=== PATIENT | female | born 1975 | race Hispanic/Latino ===

== ENCOUNTER 2017-08-13 17:24 | Emergency (ER) | payer MEDICAID | END 2017-08-13 18:20 | disposition home or self-care (01) | LOC: EDH 17:24 | DX: O26.893 Other specified pregnancy related conditions, third trimester (principal); R05 Cough; K21.9 Gastro-esophageal reflux disease without esophagitis; Z88.8 Allergy status to other drugs, medicaments and biological substances; Z3A.00 Weeks of gestation of pregnancy not specified ==

== ENCOUNTER 2017-10-07 16:44 | Inpatient (IN) | payer MEDICAID ==
[~2017-10-07] VITALS: Ht 160 cm; Wt 73.9 kg
[2017-10-07 18:00] LABS: BILIRUBIN,URINE Negative (NEGATIVE); COLOR,URINE Dark Yellow (YELLOW); GLUCOSE, URINE (UA) Negative (NEGATIVE); KETONES,URINE Negative (NEGATIVE); LEUKOCYTE ESTERASE ,URINE Trace (NEGATIVE); NITRATE,URINE Negative (NEGATIVE); OCCULT BLOOD,URINE Moderate (NEGATIVE); PROTEIN,URINE POS 1+ (NEGATIVE)
[2017-10-07 18:01] LABS: APPEARANCE,URINE CLEAR (CLEAR)
[2017-10-07 18:13] LABS: BACTERIA,URINE Rare /HPF (None Seen); MUCUS,URINE Few LPF (None Seen); WBC,URINE 0-1 /HPF (0-1)
[2017-10-07 20:38] LABS: HEMATOCRIT 36.7 % (36-48); MEAN CORPUSCULAR HEMOGLOBIN 29.1 pg (27.0-33.0); MEAN CORPUSCULAR HGB CONC 34.4 g/dL (32.0-36.0); MEAN CORPUSCULAR VOLUME 84.6 fL (79-99); PLATELET COUNT (AUTO) 153 K/uL (130-400); RED BLOOD CELL COUNT(AUTO) 4.34 MIL/uL (4.00-5.50); RED CELL DISTRIBUTION WIDTH 13.8 % (11.0-15.5); WHITE BLOOD COUNT (AUTO) 8.9 K/uL (4.8-10.8)
[2017-10-07] MEDS ORDERED: BUTORPHANOL TARTRATE 2 MG/ML IVP ONE (22:30)
[2017-10-07] MEDS ORDERED: BUTORPHANOL TARTRATE 2 MG/ML ONE (22:41)
[2017-10-07] MEDS: LACTATED RINGERS 1000ML 1,000 ML IV PRN (22:49)
[2017-10-08] MEDS ORDERED: OXYTOCIN-LR 20 UNITS/1000 ML 1,000 ML IV SCH (03:15)
[2017-10-08] MEDS ORDERED: LACTATED RINGERS 500 ML 500 ML IV PRN (05:15)
[2017-10-08] MEDS ORDERED: OXYTOCIN 10 USP UNITS/ML 20 UNIT in LACTATED RINGERS 1000ML 1,000 ML IV SCH (05:15)
[2017-10-08] MEDS ORDERED: EPHEDRINE SULFATE 50 MG/ML AMPULE IVP PRN (05:15)
[2017-10-08] MEDS ORDERED: ROPIVACAINE 0.2%200ML EPIDURAL 200 ML EP SCH (05:15)
[2017-10-08] MEDS ORDERED: NALOXONE HCL 0.4 MG/1 ML ML IV PRN (05:15)
[2017-10-08] MEDS: LACTATED RINGERS 1000ML 1,000 ML IV PRN (05:23)
[2017-10-08] MEDS ORDERED: OXYTOCIN 10 USP UNITS/ML ONE ×2 (06:26→09:24)
[2017-10-08] MEDS ORDERED: LACTATED RINGERS 1000ML 1,000 ML IV ONE (06:26)
[2017-10-08 10:32] LABS: RAPID PLASMA REAGIN NONREACTIVE (NONREACTIVE)
[2017-10-08] MEDS ORDERED: ACETAMINOPHEN 325 MG TAB PO PRN (11:30)
[2017-10-08] MEDS ORDERED: BENZOCAINE/LANOLIN/ALOE VERA 60 ML AEROSOL TP PRN (11:30)
[2017-10-08] MEDS ORDERED: WITCH HAZEL 1 PAD TP PRN (11:30)
[2017-10-08] MEDS ORDERED: MEASLES/MUMPS/RUBELLA VACCINE, LIVE 0.5 ML/VIAL SQ PRN (11:30)
[2017-10-08] MEDS ORDERED: LANOLIN 30GM OINTMENT TP PRN (11:30)
[2017-10-08] MEDS ORDERED: DIPH,PERTUSS(ACELL),TET VAC/PF 0.5 ML VIAL IM PRN (11:30)
[2017-10-08 15:05] VITALS: BP 113/53
[2017-10-08] MEDS: IBUPROFEN 600 MG TABLET PO PRN (16:30)
[2017-10-08 19:24] VITALS: BP 98/55
[2017-10-08] MEDS: DOCUSATE SODIUM 100 MG CAP PO SCH (21:00)
[2017-10-08 23:08] VITALS: BP 96/52
[2017-10-09 02:54] VITALS: BP 97/61
[2017-10-09] MEDS: IBUPROFEN 600 MG TABLET PO PRN ×2 (02:57→08:58)
[2017-10-09 06:04] LABS: HEMATOCRIT 29.4 % (36-48); MEAN CORPUSCULAR HEMOGLOBIN 30.1 pg (27.0-33.0); MEAN CORPUSCULAR HGB CONC 35.6 g/dL (32.0-36.0); MEAN CORPUSCULAR VOLUME 84.7 fL (79-99); NUCLEATED RED BLOOD CELLS 0.1 % (0.0-0.19); PLATELET COUNT (AUTO) 111 K/uL (130-400); RED BLOOD CELL COUNT(AUTO) 3.47 MIL/uL (4.00-5.50); RED CELL DISTRIBUTION WIDTH 13.9 % (11.0-15.5); WHITE BLOOD COUNT (AUTO) 10.5 K/uL (4.8-10.8)
[2017-10-09 07:08] VITALS: BP 94/53
[2017-10-09] MEDS: DOCUSATE SODIUM 100 MG CAP PO SCH (08:57)
[2017-10-09 11:21] VITALS: BP 102/66
[2017-10-10 05:15] LABS: HEPATITIS Bs ANTIGEN SCREEN P Negative (Negative)
== END 2017-10-09 14:45 | disposition home or self-care (01) | DRG 560 ==
LOC: EDH 16:44 → OBSVTOIN 17:06 → LDH 17:06 → WSH 10-08 15:05
PROVIDERS: ADMIT Obstetrics & Gynecology; ATTEND Obstetrics & Gynecology
PROC: 10E0XZZ Delivery of Products of Conception, External Approach (ICD-10-PCS; principal; 2017-10-08)
PROC: 3E0234Z Introduction of Serum, Toxoid and Vaccine into Muscle, Percutaneous Approach (ICD-10-PCS; 2017-10-08)
PROC: 3E0134Z Introduction of Serum, Toxoid and Vaccine into Subcutaneous Tissue, Percutaneous Approach (ICD-10-PCS; 2017-10-08)
DX: O69.1XX0 Labor and delivery complicated by cord around neck, with compression, not applicable or unspecified (principal); Z23 Encounter for immunization; Z37.0 Single live birth; Z3A.39 39 weeks gestation of pregnancy
CPT/HCPCS: 36415; 76819; 81001; 85027; 86592; 86701; 86850; 86900; 86901; 87340; 87390; 90715; 96360; 96361; A4314; J0595; J2590; J7120